=== PATIENT | female | born 1970 | race Two or more races ===

== ENCOUNTER 2024-11-21 10:34 | Outpatient (AMB) | payer BC, SELFPAY ==
--- NOTE | 2024-11-21 10:26 | GYNCLNT_ITS ---
Vital Signs 11/21/24 10:46 Height 1.52 m Height Method Stated Weight 92.59 kg Weight Measurement Method Standing Scale BMI 39.9 BP 151/90 H Blood Pressure Source Automatic Cuff Blood Pressure Location Left Upper Arm Position Sitting Respiration 14 Pulse 65 Pulse Source Monitor Temp 97.8 F Temp Source Oral Pulse Oximetry (%) 96 Oxygen Delivery Method Room Air Allergies/Home Meds Allergies & Medications Allergies latex Allergy (Unknown, Verified 11/21/24 10:49) RASH avocado Allergy (Uncoded 11/21/24 10:49) Medication Reconciliation amitriptyline 10 mg tablet 10 mg PO QDAY 07/12/22 [History Confirmed 11/21/24] amlodipine 10 mg tablet 10 mg PO QDAY 07/12/22 [History Confirmed 11/21/24] atenolol 50 mg tablet 50 mg PO QDAY 07/12/22 [History Confirmed 11/21/24] dicyclomine 10 mg capsule 10 mg PO QID 07/12/22 [History Confirmed 11/21/24] levothyroxine 75 mcg capsule 75 mcg PO QDAY 07/12/22 [History Confirmed 11/21/24] losartan 100 mg tablet 100 mg PO QDAY 07/12/22 [History Confirmed 11/21/24] metformin 500 mg tablet 500 mg PO QDAY 07/12/22 [History Confirmed 11/21/24] Intake Visit Data Collection New Patient or Established: Established Patient (seen at [facility] within 3 years) Reason for Visit:: HORMONE THERAPY Seen by Clinical Staff ONLY (RN/MA): No Production Bow Maker Required: No Do You Feel Safe at Home: Yes Authorities Contacted: N/A PCP or OBGYN visit in last 3 months: Yes Hx Now: No Are you currently on any form of Control: No Pain Present Currently: Yes Pain Location: Unable to identify (ALL OVER BODY ) Pain Scale Used: Collado-Mcgrath/Numerical Pain scale:: 7 Smoking Status Smoking Status: Never smoker 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: No Age at menarche: 8 Menopausal: Yes If menopausal, at what age did it occur: 52 Currently sexually active: Yes Additional comments: No hx HRT use FULFILLMENT COORDINATOR: Past Medical History Additional Operations/Hospitalizations (year & reason): [facility] x 3 Gallbladder removal Other Relevant History: Hypothyroidism on levothyroxine HTN on Amlodipine, atenolol and losartan NIDDM on metformin Fibromyalgia on tramadol PRN and amitrytaline Questionnaires Covid-19 Vaccine Questionnaire Has patient been vacinated for Covid-19 Have you been vacinated for Covid-19: Yes PHQ-9 PHQ-2 Over the last 2 weeks, how often have you been bothered by any of the following problems? 1. Little interest or pleasure in doing things: not at all 2. Feeling down, depressed, or hopeless: not at all Total score: 0 PHQ-9 3. Trouble falling or staying asleep, or sleeping too much: Not at all 4. Feeling tired or having little energy: Not at all 5. Poor appetite or overeating: Not at all 6. Feeling bad about yourself - or that you are a failure or have let yourself or your family down: Not at all 7. Trouble concentrating on things, such as reading the newspaper or watching television: Not at all 8. Moving or speaking so slowly that other people could have noticed? - Or the opposite - being so fidgety or restless that you have been moving around a lot more than usual: not at all 9. Thoughts that you would be better off or of hurting yourself in some way: Not at all Total score: 0 Source: Developed by Drs. Joaquin Crandall, Ev Moseley, Yazan Horner and colleagues, with an educational michael from [employer]. Depression screen completed yes Social History Living Situation History Marital Status: Lives With: Family Housing: House Housing Other:: Works as a TREASURER Tobacco History Smoking Status: Never smoker Alcohol History Alcohol Intake: Current Alcohol Intake Frequency: holidays/special occasions only Domestic Abuse History Do You Feel Safe at Home: Yes History of Present Illness HPI Narrative The patient is a 54 y/o who presents as a referral from Dr. Sterling to discuss HRT. Her LMP was in 10/2023. 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 The patient has occasional hot flashes and night sweats. Her main complaint is joint pain. 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 She can barely sleep at night due to back pain and generalized joint pain. The PA she sees thought it might be fibromyalgia and prescribed tramadol.The patient read that HRT could help her joint pain. Review of Systems Review of Systems Narrative Review of Systems: + Back and joint pain, + back pain, No severe hot flashes or night sweats, no significant vaginal dryness. Exam General Limitations: no limitations General Appearance: alert, in no apparent distress, comfortable, cooperative and obese Chest Chest inspection: Present normal inspection and symmetric chest wall rise Resp Respiratory exam: Present normal lung sounds bilaterally Card Cardiovascular exam: Present regular rate, normal rhythm and normal heart sounds Abdominal Abdominal exam: Present soft and normal bowel sounds Extremities Extremities exam: Present normal inspection and full ROM Psych Psychiatric exam: Present normal affect and normal mood Skin Skin exam: Present warm, dry, intact and normal color Office Procedures OB Clinic LOC & Office Proc's Nursing/Assessment Patient Status: Established Patient OB Clinic Nursing Assessment: Medication Reconciliation, Update PMH in EMR and Vital Signs OB Clinic Coordination of Care: Complex Care and Chronic Disease 1-5, Consent,records obtained, informed consent, Education Simp Pt/Fam, Lab and Imaging orders, Results/Orders obtained and Staff clarify orders Established Patient Charge Established Patient Point Assignment: 105 Established Patient Point Charge: EP Level 3 (80-115) Assessment & Plan Diagnosis / Problem List (1) Post menopausal problems: Status: Acute Assessment and Plan: Discussed the menopause and HRT. The patient mainly reports joint and back pain but no significant mood instability, hot flashes or night sweats. I told the patient if I was to prescribe HRT, then I usually would pick a medication to help her symptoms. For moodiness, sometimes an anti-depressant such as lexapro. For vaginal dryness, usually vaginal estrogen. For hot flashes sometimes veozah. For a combination of all menopausal symptoms, hormones. I told the patient she is not an ideal candidate for HRT as she is hypertensive on multiple medications and that along with HRT can increase her risk of a stroke or DVT. Her elevated BMI also increases her risk for breast and uterine CA and this risk would only increase more with the addition of HRT. I told her sometimes joints hurt we get age, but severe joint pain that limits her ability to sleep and makes work difficult is not a condition associated with menopause. I'm unclear whether or not this could be a side effect of the multiple medications she is on or if she needs to be checked for rheumatological conditions such as RA or lupus. I suggested a new Internal Medicine MD in [place] at the [facility] to meet the patient, look at her medications, and do lab work to especially target her joint complaints. I gave her the phone number of the new patient coordinator to schedule an appointment. They also have a credentialing specialist on staff. Once her joint pain is addressed, the patient can call back to schedule an appointment to further address HRT. She can follow up with Dr Sterling for an annual exam. (2) Joint pain: Status: Acute Qualifiers: Joint pain location: unspecified Qualified Code(s): M25.50 - Pain in unspecified joint
[2024-11-21 10:46] VITALS: BP 151/90; PULSE 65; RESP 14; TEMP 36.6; O2SAT 96; BMI 39.9
== END 2024-11-21 11:30 | disposition home or self-care (01) ==
PROVIDERS: PCP Physician Assistant; Referring Provider Physician Assistant; Supervising Provider Obstetrics & Gynecology; Visit Provider Obstetrics & Gynecology
DX: N95.1 Menopausal and female climacteric states (principal); R23.2 Flushing; R61 Generalized hyperhidrosis; M25.50 Pain in unspecified joint; E03.9 Hypothyroidism, unspecified; I10 Essential (primary) hypertension; M79.7 Fibromyalgia; E11.9 Type 2 diabetes mellitus without complications; Z79.890 Hormone replacement therapy; Z79.899 Other long term (current) drug therapy; Z79.84 Long term (current) use of oral hypoglycemic drugs
CPT/HCPCS: 99213; G0463